=== PATIENT | male | born 1985 ===

== ENCOUNTER 2023-11-02 01:52 | Emergency (ER) | payer MEDICAID ==
[~2023-11-02] VITALS: Ht 180.3 cm; Wt 76.2 kg
[2023-11-02] MEDS ORDERED: METOCLOPRAMIDE HCL 10 MG/2 ML VIAL IM ONE (02:45)
[2023-11-02] MEDS ORDERED: diphenhydrAMINE 25 MG CAP PO ONE ×2 (02:45→02:46)
[2023-11-02] MEDS ORDERED: KETOROLAC TROMETHAMINE 30 MG INJ IM ONE (02:45)
[2023-11-02] MEDS ORDERED: KETOROLAC TROMETHAMINE 30 MG INJ ONE (02:46)
[2023-11-02] MEDS ORDERED: METOCLOPRAMIDE HCL 10 MG/2 ML VIAL ONE (02:46)
[2023-11-02] MEDS ORDERED: HALOPERIDOL LACTATE 5 MG/1 ML VIAL ONE (04:12)
[2023-11-02] MEDS ORDERED: DEXAMETHASONE 0.5 MG/5 ML LIQ UDC PO ONE (04:15)
[2023-11-02] MEDS ORDERED: ACETAMINOPHEN ES 500 MG TABLET PO ONE (04:15)
[2023-11-02] MEDS ORDERED: HALOPERIDOL LACTATE 5 MG/1 ML VIAL IM ONE (04:15)
[2023-11-02 05:35] VITALS: BP 92/69; O2SAT 95
== END 2023-11-02 05:44 | disposition home or self-care (01) ==
LOC: ER 01:58
DX: G89.29 Other chronic pain (principal); R51.9 Headache, unspecified; F29 Unspecified psychosis not due to a substance or known physiological condition; F17.210 Nicotine dependence, cigarettes, uncomplicated
CPT/HCPCS: 99284; 96372 ×3; Q0163; J1630; J1885; J2765; A4606; A4663